=== PATIENT | male | born 1980 | race Caucasian/White ===

== ENCOUNTER 2017-10-26 13:52 | Emergency (ER) | payer MEDICAID ==
[~2017-10-26] VITALS: Ht 180.3 cm; Wt 108.0 kg
[2017-10-26] MEDS ORDERED: KETOROLAC 60MG/2ML VIAL IM ONE (20:00)
[2017-10-26 21:08] VITALS: BP 137/80
== END 2017-10-26 21:09 | disposition home or self-care (01) ==
LOC: ER 14:20
DX: M54.5 Low back pain (principal); M54.30 Sciatica, unspecified side; I10 Essential (primary) hypertension
CPT/HCPCS: 96372; 99283; J1885

== ENCOUNTER 2019-06-12 20:59 | Emergency (ER) | payer MEDICAID ==
[~2019-06-12] VITALS: Ht 180.3 cm; Wt 101.0 kg
[2019-06-12] MEDS ORDERED: KETOROLAC 60MG/2ML VIAL IM STA (22:56)
[2019-06-12 23:20] VITALS: BP 148/89
== END 2019-06-12 23:21 | disposition home or self-care (01) ==
LOC: ER 21:10
DX: M25.511 Pain in right shoulder (principal); M10.9 Gout, unspecified
CPT/HCPCS: 96372; 99283; J1885

== ENCOUNTER 2022-03-21 18:58 | Emergency (ER) | payer MEDICAID ==
[~2022-03-21] VITALS: Ht 177.8 cm; Wt 111.0 kg
[2022-03-21] MEDS ORDERED: IBUPROFEN 400MG TABLET PO ONE (21:00)
[2022-03-21 21:19] VITALS: BP 137/76
== END 2022-03-21 22:27 | disposition home or self-care (01) ==
LOC: ER 18:58
DX: M25.522 Pain in left elbow (principal); M25.562 Pain in left knee; I10 Essential (primary) hypertension; M10.9 Gout, unspecified; Y93.55 Activity, bike riding
CPT/HCPCS: 73080; 73564; 99284